=== PATIENT | female | born 1980 | race Two or more races ===

== ENCOUNTER 2019-04-24 16:09 | Emergency (ER) | payer BC, MEDICAID ==
[~2019-04-24] VITALS: Ht 167.6 cm; Wt 85.1 kg
[2019-04-24 16:34] VITALS: BP 132/87
[2019-04-24] MEDS ORDERED: HYDROcodone/APAP 5/325 TABLET PO ONE (17:00)
--- NOTE | 2019-04-24 17:07 | NUR ---
PT MEDICATED FOR 10/10 PAIN ORDERED. PT STATES "DROVE SELF HERE AND WILL GET A RIDE HOME"
== END 2019-04-24 17:27 | disposition home or self-care (01) ==
LOC: ED 17:18
DX: K02.9 Dental caries, unspecified (principal); K04.7 Periapical abscess without sinus; Z87.891 Personal history of nicotine dependence
CPT/HCPCS: 99283

== ENCOUNTER 2019-04-25 11:18 | Emergency (ER) | payer BC ==
[~2019-04-25] VITALS: Ht 167.6 cm; Wt 84.1 kg
[2019-04-25 11:27] VITALS: BP 131/87
[2019-04-25] MEDS ORDERED: DEXAMETHASONE 4 MG/ML, 5ML ONE (12:24)
[2019-04-25] MEDS ORDERED: CLINDAMYCIN PMX 600MG/50ML 50 ML ONE (12:24)
[2019-04-25] MEDS ORDERED: CLINDAMYCIN PMX 600MG/50ML 50 ML IVPB ONE (12:30)
[2019-04-25] MEDS ORDERED: DEXAMETHASONE 4 MG/ML, 1ML IVPush ONE (12:30)
[2019-04-25] MEDS ORDERED: SODIUM CHLORIDE FLUSH 10ML SYR IVF ONE (12:30)
--- NOTE | 2019-04-25 12:41 | NUR ---
IV started in LAC without issue. Family at bedside. Infusion running without issue. Pt denies any further needs or concerns at this time.
[2019-04-25 12:50] LABS: BASOPHILS # (AUTO) 0.03 x10^3/uL (0-0.1); BASOPHILS % (AUTO) 1 % (0-1); EOSINOPHILS # (AUTO) 0.11 x10^3/uL (0-0.4); EOSINOPHILS % (AUTO) 2 % (1-7); LYMPHOCYTES # (AUTO) 0.91 x10^3/uL (1-3.4); LYMPHOCYTES % (AUTO) 19 % (22-44); MD NO; MEAN CORPUSCULAR HEMOGLOBIN 31.2 pg (27.0-34.8); MEAN CORPUSCULAR VOLUME 91.8 fL (80-100); MEAN PLATELET VOLUME 7.4 fL (7.4-10.4); MONOCYTES # (AUTO) 0.55 x10^3/uL (0.2-0.8); MONOCYTES % (AUTO) 11 % (2-9); NEUTROPHILS # (AUTO) 3.24 x10^3/uL (1.8-6.8); NEUTROPHILS % (AUTO) 67 % (42-75); PLATELET COUNT 223 x10^3/uL (130-400); RED BLOOD COUNT 4.42 x10^6/uL (3.82-5.3); RED CELL DISTRIBUTION WIDTH 13.9 % (9.6-15.2)
[2019-04-25 13:01] LABS: ALBUMIN 3.5 g/dL (3.4-5.0); ANION GAP 6 mmol/L (5-15); CALCIUM 8.2 mg/dL (8.5-10.1); CHLORIDE 110 mmol/L (98-107)
[2019-04-25 13:02] LABS: CREATININE 0.73 mg/dL (0.55-1.02)
[2019-04-25] MEDS ORDERED: OMNIPAQUE 350 MG/ML, 100ML BOTTLE ONE (13:35)
== END 2019-04-25 13:58 | disposition home or self-care (01) ==
LOC: ED 13:05
DX: K04.7 Periapical abscess without sinus (principal); Z87.891 Personal history of nicotine dependence; Z88.0 Allergy status to penicillin; Z88.8 Allergy status to other drugs, medicaments and biological substances
CPT/HCPCS: 36415; 70487; 80048; 82040; 85025; 96365; 96375; 99284; J1100; Q9967